=== PATIENT | male | born 1985 | race American Indian/Alaskan Native ===

== ENCOUNTER 2017-01-16 20:43 | Emergency (ER) | payer SELFPAY ==
[2017-01-16 22:32] LABS: BASO % 0.8 % (0.0-2.0); EOS # 0.1 K/uL (0.0-0.7); EOS % 1.2 % (0.0-4.0); LYMPH # 1.9 K/uL (1.0-4.3); LYMPH % 37.3 % (20.0-40.0); MEAN CORPUSCULAR HEMOGLOBIN 34.7 pg (27.0-31.0); MEAN PLATELET VOLUME 8.7 fL (7.2-11.7); MONO # 0.5 K/uL (0.0-0.8); NRBC % 0.1 % (0.0-2.0); RED CELL DISTRIBUTION WIDTH 13.7 % (11.5-14.5)
[2017-01-16 22:38] LABS: CHLORIDE 98 mmol/L (98-107)
[2017-01-16 22:39] LABS: POTASSIUM 3.9 mmol/L (3.6-5.2); SODIUM 134 mmol/L (132-148)
[2017-01-16 22:41] LABS: ALB/GLOB RATIO 1.3 (1.0-2.1); AST/SGOT 28 U/L (17-59); BILIRUBIN,TOTAL 0.9 mg/dL (0.2-1.3); BLOOD UREA NITROGEN 18 mg/dL (9-20); CARBON DIOXIDE 24 mmol/L (22-30); GFR AFRICAN-AMERICAN > 60; TOTAL PROTEIN 7.4 g/dL (6.3-8.3)
[2017-01-16 22:42] LABS: ALKALINE PHOSPHATASE 58 U/L (38-126); ALT/SGPT 32 U/L (21-72); CALCIUM 8.4 mg/dl (8.6-10.4); GLUCOSE,RANDOM 86 mg/dL (75-110)
[2017-01-16 22:44] LABS: RBC URINE 1 /hpf (0-3); URINE BACTERIA OCC (<OCC); URINE BILIRUBIN NEGATIVE (NEGATIVE); URINE BLOOD NEGATIVE (NEGATIVE); URINE COLOR Yellow (YELLOW); URINE GLUCOSE (UA) NORMAL (Normal); URINE KETONE TRACE mg/dL (NEGATIVE); URINE LEUKOCYTE ESTERASE 1+ Leu/uL (Negative); URINE PROTEIN NEGATIVE (NEGATIVE); WBC URINE 19 /hpf (0-5)
--- NOTE | 2017-01-16 22:57 | C.PDOC ---
History Of Present Illness Patient is a 31 y/o male who presents to the ED with a complaint of abdominal discomfort of the LLQ and suprapubic area. Patient describes pain as intermittent with no associated symptoms. Denies nausea or diarrhea, fever, and chills; but admits to possible dysuria. Patient denies any penile discharge. Patient is currently non-distressed and eating chips. No other complaints at this time. Time Seen by Provider: 01/16/17 22:00 Chief Complaint (Nursing): Abdominal Pain History Per: Patient History/Exam Limitations: no limitations Onset/Duration Of Symptoms: Days (three days), Intermittent Episodes Location Of Pain/Discomfort: LLQ, Suprapubic Associated Symptoms: denies: Fever, Chills, Nausea, Diarrhea Recent travel outside of the [place]: No Past Medical History Reviewed: Historical Data, Nursing Documentation, Vital Signs Vital Signs: Last Vital Signs Temp 98.2 F 01/16/17 21:37 Pulse 83 01/16/17 21:37 Resp 16 01/16/17 21:37 BP 104/66 01/16/17 21:37 Pulse Ox 98 01/16/17 23:00 - Medical History PMH: No Chronic Diseases Family History: States: Unknown Family Hx - Social History Hx Tobacco Use: Yes Hx Alcohol Use: Yes Hx Substance Use: Yes (marijuana) - Immunization History Hx Tetanus Toxoid Vaccination: No Hx Influenza Vaccination: No Hx Pneumococcal Vaccination: No Review Of Systems Constitutional: Negative for: Fever, Chills Cardiovascular: Negative for: Chest Pain Respiratory: Negative for: Shortness of Breath Gastrointestinal: Positive for: Abdominal Pain (LLQ and suprapubic). Negative for: Nausea Genitourinary: Positive for: Dysuria (possible). Negative for: Penile Discharge Physical Exam - Physical Exam Appears: Well, Non-toxic, No Acute Distress Skin: Normal Color, Warm, Dry Head: Atraumatic, Normacephalic Oral Mucosa: Moist Chest: Symmetrical Cardiovascular: Rhythm Regular, No Murmur Respiratory: Normal Breath Sounds, No Rales, No Rhonchi, No Wheezing Gastrointestinal/Abdominal: Soft, No Tenderness Neurological/Psych: Oriented x3, Normal Speech, Normal Cognition ED Course And Treatment - Laboratory Results Result Diagrams: 01/16/17 22:27 01/16/17 22:27 Lab Interpretation: Abnormal (Urine with 19 WBC. Blood work normal) O2 Sat by Pulse Oximetry: 98 Pulse Ox Interpretation: Normal Progress Note: Exam negative. Reevaluation Time: 23:14 Reassessment Condition: Unchanged Disposition Counseled Patient/Family Regarding: Studies Performed, Diagnosis, Need For Followup, Rx Given - Disposition Referrals: [facility] [Outside] Disposition: HOME/ ROUTINE Disposition Time: 23:17 Condition: STABLE Prescriptions: Nitrofurantoin Macrocrystals [Macrobid] 1 cap PO BID #14 cap Instructions: Urinary Tract Infection in Men (ED) Forms: [employer] (Frisian) - Clinical Impression Clinical Impression: UTI (urinary tract infection) with pyuria - Scribe Statement The provider has reviewed the documentation as recorded by the Scribe Nohemi Ortega All medical record entries made by the Scribe were at my direction and personally dictated by me. I have reviewed the chart and agree that the record accurately reflects my personal performance of the history, physical exam, medical decision making, and the department course for this patient. I have also personally directed, reviewed, and agree with the discharge instructions and disposition.
[2017-01-16 23:36] VITALS: BP 111/69; PULSE 68; RESP 18; TEMP 97.6; O2SAT 99
== END 2017-01-16 23:36 | disposition home or self-care (01) ==
LOC: C.ER 20:43
DX: N39.0 Urinary tract infection, site not specified (principal); B96.89 Other specified bacterial agents as the cause of diseases classified elsewhere

== ENCOUNTER 2017-05-26 15:48 | Emergency (ER) | payer SELFPAY ==
[2017-05-26 16:20] VITALS: BP 102/63; PULSE 75; TEMP 98; O2SAT 100
--- NOTE | 2017-05-26 17:19 | RAD ---
PROCEDURE: Left Hand Radiographs. HISTORY: LEFT HAND POSSIBLE FOREIGN BODY COMPARISON: None available. FINDINGS: BONES: No acute displaced fracture. JOINTS: No dislocation. SOFT TISSUES: Unremarkable. No evidence of radiopaque foreign body. OTHER FINDINGS: None. IMPRESSION: No radiopaque foreign body identified.
[2017-05-26] MEDS ORDERED: Tmp-Smz 800 mg-160 mg DS Tab PO STA (17:34)
--- NOTE | 2017-05-26 17:34 | C.PDOC ---
History Of Present Illness 32 year old male presents to the ED for evaluation of a suspected foreign body in his left palm. 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 He was able to remove the piece at work. Two days ago, patient began experiencing pain and noted yellow discharge around the site. Patient suspects some glass particles may still be stuck under his skin. He is up-to-date with Tetanus immunization and denies extremity numbness/ weakness or any new injuries at this time. Time Seen by Provider: 05/26/17 16:31 Chief Complaint (Nursing): Upper Extremity Problem/Injury History Per: Patient History/Exam Limitations: no limitations Onset/Duration Of Symptoms: Days (2) Current Symptoms Are (Timing): Still Present Quality: "Pain" Additional History Per: Patient Past Medical History Reviewed: Historical Data, Nursing Documentation, Vital Signs Vital Signs: Last Vital Signs Temp 98.0 F 05/26/17 16:20 Pulse 75 05/26/17 16:20 Resp 18 05/26/17 17:57 BP 102/63 05/26/17 16:20 Pulse Ox 100 05/26/17 18:00 - Medical History PMH: No Chronic Diseases Surgical History: No Surg Hx Family History: States: Unknown Family Hx - Social History Hx Tobacco Use: Yes Hx Alcohol Use: Yes Hx Substance Use: Yes (marijuana) - Immunization History Hx Tetanus Toxoid Vaccination: No Hx Influenza Vaccination: No Hx Pneumococcal Vaccination: No Review Of Systems Skin: Positive for: Other (possible foreign body in left palm with discharge ) Neurological: Negative for: Weakness, Numbness Physical Exam - Physical Exam Appears: Non-toxic, No Acute Distress Skin: Normal Color, Warm, Dry Extremity: Normal ROM (digits of left hand ), Capillary Refill (less than 2 seconds), Other (shirley aspect of left hand: tenderness to base of 3rd phalanx. small eschar noted. mild swelling noted ) Neurological/Psych: Oriented x3, Normal Speech, Normal Cognition, Normal Motor, Normal Sensation ED Course And Treatment O2 Sat by Pulse Oximetry: 100 (on RA) Pulse Ox Interpretation: Normal - Other Rad left hand XR X-Ray: Interpreted by Me, Viewed By Me, Read By Radiologist Interpretation: PROCEDURE: Left Hand Radiographs. HISTORY: LEFT HAND POSSIBLE FOREIGN BODY. COMPARISON: None available. FINDINGS: BONES: No acute displaced fracture. JOINTS: No dislocation. SOFT TISSUES: Unremarkable. No evidence of radiopaque foreign body. OTHER FINDINGS: None. IMPRESSION: No radiopaque foreign body identified. Progress Note: Left hand XR ordered. Results are unremarkable, with no visualization of foreign body. Bactrim PO, Keflex PO, and Naproxen PO administered. On reassessment, patient is resting comfortably, showing no signs of distress and reports an improvement in pain. Patient is advised to follow up with his PMD within 1-2 days for further evaluation and/or return to the ED if symptoms persist or worsen. Disposition Counseled Patient/Family Regarding: Diagnosis, Need For Followup, Rx Given - Disposition Referrals: [facility] [Outside] Disposition: HOME/ ROUTINE Disposition Time: 17:35 Condition: STABLE Additional Instructions: FOLLOW UP WITH YOUR DOCTOR/CLINIC IN 1-2 DAYS USE MEDICATIONS DIRECTED RETURN TO ER IF SYMPTOMS WORSEN Prescriptions: Cephalexin [Keflex] 500 mg PO BID #14 capsule Naproxen 375 mg PO BID PRN #20 tablet PRN Reason: pain Sulfamethoxazole/Trimethoprim [Bactrim DS 800 mg-160 mg] 1 tab PO BID #14 tab Forms: [employer] ([place]er), General Discharge Instructions Print Language: [place] - POA Present On Arrival: None - Clinical Impression Clinical Impression: Puncture wound, hand - Scribe Statement The provider has reviewed the documentation as recorded by the Scribe Provider Attestation: All medical record entries made by the Scribe were at my direction and personally dictated by me. I have reviewed the chart and agree that the record accurately reflects my personal performance of the history, physical exam, medical decision making, and the department course for this patient. I have also personally directed, reviewed, and agree with the discharge instructions and disposition.
[2017-05-26] MEDS ORDERED: Naproxen 550 mg Tab PO STA (17:35)
[2017-05-26 17:58] VITALS: RESP 18
== END 2017-05-26 17:57 | disposition home or self-care (01) ==
LOC: C.ER 15:48
DX: S61.432A Puncture wound without foreign body of left hand, initial encounter (principal); X58.XXXA Exposure to other specified factors, initial encounter; Y99.0 Civilian activity done for income or pay; Z87.891 Personal history of nicotine dependence